=== PATIENT | female | born 1985 | race Caucasian/White ===

== ENCOUNTER 2025-01-05 09:48 | Outpatient (RCR) | payer OTHER, SELFPAY | END 2025-01-18 23:59 | disposition home or self-care (01) | LOC: SOT 09:48 | PROVIDERS: Visit Provider Radiology Radiation Oncology | DX: S66.121A Laceration of flexor muscle, fascia and tendon of left index finger at wrist and hand level, initial encounter (principal); X58.XXXA Exposure to other specified factors, initial encounter | CPT/HCPCS: 97110; 97140; 97165; 97530 ==

== ENCOUNTER 2025-01-19 05:17 | Outpatient (RCR) | payer OTHER, SELFPAY | END 2025-02-17 23:59 | disposition home or self-care (01) | LOC: SOT 05:17 | PROVIDERS: Visit Provider Radiology Radiation Oncology | DX: S66.822A Laceration of other specified muscles, fascia and tendons at wrist and hand level, left hand, initial encounter (principal); X58.XXXA Exposure to other specified factors, initial encounter | CPT/HCPCS: 97022; 97110; 97140; 97530 ==

== ENCOUNTER 2025-02-18 05:00 | Outpatient (RCR) | payer OTHER, SELFPAY | END 2025-03-20 23:55 | disposition home or self-care (01) | LOC: SOT 05:00 | PROVIDERS: Visit Provider Radiology Radiation Oncology | DX: S66.822A Laceration of other specified muscles, fascia and tendons at wrist and hand level, left hand, initial encounter (principal); X58.XXXA Exposure to other specified factors, initial encounter | CPT/HCPCS: 97022; 97110; 97140 ==

== ENCOUNTER 2025-03-21 06:30 | Outpatient (RCR) | payer OTHER, SELFPAY | END 2025-04-19 23:59 | disposition home or self-care (01) | LOC: SOT 06:30 | PROVIDERS: Visit Provider Radiology Radiation Oncology | DX: S66.822A Laceration of other specified muscles, fascia and tendons at wrist and hand level, left hand, initial encounter (principal); X58.XXXA Exposure to other specified factors, initial encounter | CPT/HCPCS: 97022; 97032; 97110; 97112; 97140 ==

== ENCOUNTER 2025-04-20 05:00 | Outpatient (RCR) | payer OTHER, SELFPAY | END 2025-05-20 23:59 | disposition home or self-care (01) | LOC: SOT 05:00 | PROVIDERS: Visit Provider Radiology Radiation Oncology | DX: S66.822A Laceration of other specified muscles, fascia and tendons at wrist and hand level, left hand, initial encounter (principal); X58.XXXA Exposure to other specified factors, initial encounter | CPT/HCPCS: 97022; 97140 ==

== ENCOUNTER 2025-07-15 10:04 | Outpatient (RCR) | payer OTHER, SELFPAY | END 2025-07-20 23:59 | disposition home or self-care (01) | LOC: SOT 10:04 | DX: M21.242 Flexion deformity, left finger joints (principal); M67.844 Other specified disorders of tendon, left hand | CPT/HCPCS: 97110; 97140; 97530; L3923 ==

== ENCOUNTER 2025-07-21 05:00 | Outpatient (RCR) | payer OTHER, SELFPAY | END 2025-08-20 23:59 | disposition home or self-care (01) | LOC: SOT 05:00 | DX: M24.541 Contracture, right hand (principal) | CPT/HCPCS: 97022; 97110; 97140; 97530 ==

== ENCOUNTER 2025-08-21 05:00 | Outpatient (RCR) | payer OTHER, SELFPAY | END 2025-09-19 23:59 | disposition home or self-care (01) | LOC: SOT 05:00 | DX: M21.242 Flexion deformity, left finger joints (principal); M67.844 Other specified disorders of tendon, left hand | CPT/HCPCS: 97022; 97110; 97112; 97140 ==